=== PATIENT | female | born 1950 | race Caucasian/White ===

== ENCOUNTER → 2023-09-02 07:43 | Outpatient (REF) | payer MEDICARE, OTHER, SELFPAY ==
[2023-09-02 09:13] LABS: ALT (SGPT) 41 U/L (0-35); AST (SGOT) 38 U/L (14-36); Albumin 3.7 g/dl (3.5-5.0); Alkaline Phosphatase 73 U/L (38-126); Blood Urea Nitrogen 20 mg/dl (7-17); Calcium 9.3 mg/dl (8.4-10.2); Carbon Dioxide 27 mmol/L (22-30); Chloride 103 mmol/L (98-107); Glucose 125 mg/dl (70-99); Potassium 4.6 mmol/L (3.5-5.1); Sodium 137 mmol/L (135-145); Total Bilirubin 0.5 mg/dl (0.2-1.3); eGFR > 60.00
[2023-09-02 09:30] LABS: Free T4 1.25 ng/dl (0.78-2.19)
[2023-09-04 12:00] LABS: Fructosamine 244 umol/L (205-285)
== END ==
LOC: REG 07:43
PROVIDERS: ATTENDING PHYSICIAN Internal Medicine Endocrinology, Diabetes & Metabolism; FAMILY PHYSICIAN Internal Medicine
DX: E10.9 Type 1 diabetes mellitus without complications (principal); E03.8 Other specified hypothyroidism
CPT/HCPCS: 36415; 80053; 82985; 84439

== ENCOUNTER → 2023-10-18 13:44 | Outpatient (REF) | payer MEDICARE, OTHER, SELFPAY | LOC: WDC 13:44 | PROVIDERS: ATTENDING PHYSICIAN Obstetrics & Gynecology Gynecology; FAMILY PHYSICIAN Internal Medicine | DX: Z12.4 Encounter for screening for malignant neoplasm of cervix (principal); M85.89 Other specified disorders of bone density and structure, multiple sites; Z12.31 Encounter for screening mammogram for malignant neoplasm of breast | CPT/HCPCS: 77063; 77067; 77080 ==

== ENCOUNTER → 2023-10-27 13:14 | Outpatient (REF) | payer MEDICARE, OTHER, SELFPAY | LOC: RAD 13:14 | PROVIDERS: ATTENDING PHYSICIAN Physician Assistant Medical | DX: M54.50 Low back pain, unspecified (principal) | CPT/HCPCS: 72110 ==

== ENCOUNTER → 2023-11-17 07:13 | Outpatient (REF) | payer MEDICARE, OTHER, SELFPAY | LOC: MRI 07:13 | PROVIDERS: ATTENDING PHYSICIAN Psychiatry & Neurology Neurology; FAMILY PHYSICIAN Internal Medicine | DX: M47.816 Spondylosis without myelopathy or radiculopathy, lumbar region (principal) | CPT/HCPCS: 72148 ==

== ENCOUNTER → 2023-11-29 08:35 | Outpatient (REF) | payer MEDICARE, OTHER, SELFPAY ==
[2023-11-29 09:57] LABS: Free T4 1.16 ng/dl (0.78-2.19)
[2023-11-29 10:09] LABS: ALT (SGPT) 36 U/L (0-35); AST (SGOT) 34 U/L (14-36); Albumin 3.8 g/dl (3.5-5.0); Alkaline Phosphatase 73 U/L (38-126); Blood Urea Nitrogen 25 mg/dl (7-17); Calcium 9.7 mg/dl (8.4-10.2); Carbon Dioxide 24 mmol/L (22-30); Chloride 106 mmol/L (98-107); Glucose 148 mg/dl (70-99); HDL Cholesterol 59 mg/dl; LDL Cholesterol, Calculated 41 mg/dl; Potassium 4.5 mmol/L (3.5-5.1); Sodium 139 mmol/L (135-145); Total Bilirubin 0.4 mg/dl (0.2-1.3); Total Cholesterol 114 mg/dl (50-199); Total Protein 6.1 g/dl (6.3-8.2); Triglyceride 72 mg/dl (10-149); Very Low Density Lipoprotein 14 mg/dl (0-30); eGFR > 60.00
[2023-11-30 16:37] LABS: Fructosamine 250 umol/L (205-285)
== END ==
LOC: REG 08:35
PROVIDERS: ATTENDING PHYSICIAN Internal Medicine Endocrinology, Diabetes & Metabolism; FAMILY PHYSICIAN Internal Medicine
DX: E10.9 Type 1 diabetes mellitus without complications (principal); E78.2 Mixed hyperlipidemia; E03.8 Other specified hypothyroidism
CPT/HCPCS: 36415; 80053; 80061; 82985; 84439

== ENCOUNTER → 2024-02-28 08:12 | Outpatient (REF) | payer MEDICARE, OTHER, SELFPAY ==
[2024-02-28 09:53] LABS: % Basophils 0.5 % (0-2); % Eosinophils 4.3 % (0-6); % Immature Granulocytes 0.3 % (0-0.5); % Lymphocytes 38.7 % (20.5-51.1); % Monocytes 9.2 % (1.7-9.3); Absolute Eosinophils 0.3 10^3/uL (0-0.7); Absolute Lymphocytes 2.2 10^3/uL (1.2-3.4); Absolute Monocytes 0.5 10^3/uL (0.1-0.6); Absolute Neutrophils 2.7 10^3/uL (1.4-6.5); Hematocrit 42.9 % (37.0-47.0); Hemoglobin 14.6 g/dL (12.0-16.0); Mean Corpuscular Hgb 29.7 pg (27.0-31.0); Mean Corpuscular Volume 87.4 fL (81.0-99.0); Nucleated Red Blood Cells % 0 %; Platelet Count 234 10^3/uL (130-400); Red Blood Cell Count 4.91 10^6/uL (4.20-5.40); Red Cell Dist. Width 13.1 % (11.5-14.5); White Blood Cell Count 5.8 10^3/uL (4.8-10.8)
[2024-02-28 10:18] LABS: ALT (SGPT) 41 U/L (0-35); AST (SGOT) 32 U/L (14-36); Albumin 3.8 g/dl (3.5-5.0); Alkaline Phosphatase 61 U/L (38-126); Amylase 61 U/L (30-110); Blood Urea Nitrogen 21 mg/dl (7-17); Calcium 9.1 mg/dl (8.4-10.2); Carbon Dioxide 28 mmol/L (22-30); Chloride 107 mmol/L (98-107); Glucose 122 mg/dl (70-99); Lipase 63 U/L (23-300); Potassium 4.7 mmol/L (3.5-5.1); Sodium 137 mmol/L (135-145); Total Bilirubin 0.4 mg/dl (0.2-1.3); Total Protein 5.8 g/dl (6.3-8.2); eGFR > 60.00
[2024-02-28 10:25] LABS: Free T4 1.06 ng/dl (0.78-2.19)
[2024-03-01 00:42] LABS: Fructosamine 227 umol/L (205-285)
== END ==
LOC: REG 08:12
PROVIDERS: ATTENDING PHYSICIAN Internal Medicine Endocrinology, Diabetes & Metabolism; FAMILY PHYSICIAN Internal Medicine; OTHER PHYSICIAN Specialist; REFERRING PHYSICIAN Psychiatry & Neurology Neuromuscular Medicine
DX: E10.9 Type 1 diabetes mellitus without complications (principal); E03.8 Other specified hypothyroidism; R10.13 Epigastric pain; R14.2 Eructation
CPT/HCPCS: 36415; 80053; 82150; 82985; 83690; 84439; 85025

== ENCOUNTER → 2024-03-23 07:35 | Outpatient (REF) | payer MEDICARE, OTHER, SELFPAY | LOC: RAD 07:35 | PROVIDERS: ATTENDING PHYSICIAN Internal Medicine | DX: R10.13 Epigastric pain (principal); R14.2 Eructation | CPT/HCPCS: 76700 ==

== ENCOUNTER → 2024-04-11 13:34 | Outpatient (REF) | payer MEDICARE, OTHER, SELFPAY ==
[2024-04-11 14:58] LABS: % Basophils 0.6 % (0-2); % Eosinophils 3.4 % (0-6); % Immature Granulocytes 0.3 % (0-0.5); % Lymphocytes 26.4 % (20.5-51.1); % Monocytes 8.6 % (1.7-9.3); % Neutrophils 60.7 % (42.2-75.2); Absolute Eosinophils 0.2 10^3/uL (0-0.7); Absolute Lymphocytes 1.8 10^3/uL (1.2-3.4); Absolute Monocytes 0.6 10^3/uL (0.1-0.6); Absolute Neutrophils 4.2 10^3/uL (1.4-6.5); Hemoglobin 14.8 g/dL (12.0-16.0); Mean Corp Hgb Conc. 32.9 g/dL (33.0-37.0); Mean Corpuscular Hgb 29.4 pg (27.0-31.0); Mean Corpuscular Volume 89.3 fL (81.0-99.0); Mean Platelet Volume 9.5 fL (7.4-10.4); Nucleated Red Blood Cells % 0 %; Platelet Count 271 10^3/uL (130-400); Red Blood Cell Count 5.04 10^6/uL (4.20-5.40); Red Cell Dist. Width 12.6 % (11.5-14.5)
[2024-04-11 15:43] LABS: Blood Urea Nitrogen 25 mg/dl (7-17); Calcium 9.6 mg/dl (8.4-10.2); Carbon Dioxide 25 mmol/L (22-30); Chloride 103 mmol/L (98-107); Glucose 163 mg/dl (70-99); Potassium 5.2 mmol/L (3.5-5.1); Sodium 140 mmol/L (135-145); eGFR > 60.00
[2024-04-12 07:38] LABS: Glycohemoglobin (HgbA1c) 7.2 % (4.0-5.6)
== END ==
LOC: REG 13:34
PROVIDERS: ATTENDING PHYSICIAN Student in an Organized Health Care Education/Training Program; FAMILY PHYSICIAN Internal Medicine
DX: Z01.818 Encounter for other preprocedural examination (principal); E11.9 Type 2 diabetes mellitus without complications
CPT/HCPCS: 36415; 80048; 83036; 85025; 93005

== ENCOUNTER → 2024-06-06 11:16 | Outpatient (REF) | payer MEDICARE, OTHER, SELFPAY ==
[2024-06-06 13:15] LABS: % Basophils 0.4 % (0-2); % Eosinophils 3.3 % (0-6); % Immature Granulocytes 0.4 % (0-0.5); % Lymphocytes 31.9 % (20.5-51.1); Absolute Eosinophils 0.2 10^3/uL (0-0.7); Absolute Lymphocytes 2.2 10^3/uL (1.2-3.4); Absolute Monocytes 0.6 10^3/uL (0.1-0.6); Absolute Neutrophils 3.9 10^3/uL (1.4-6.5); Hematocrit 47.6 % (37.0-47.0); Hemoglobin 15.8 g/dL (12.0-16.0); Mean Corp Hgb Conc. 33.2 g/dL (33.0-37.0); Mean Corpuscular Hgb 29.8 pg (27.0-31.0); Mean Corpuscular Volume 89.6 fL (81.0-99.0); Mean Platelet Volume 9.4 fL (7.4-10.4); Nucleated Red Blood Cells % 0 %; Platelet Count 249 10^3/uL (130-400); Red Blood Cell Count 5.31 10^6/uL (4.20-5.40); Red Cell Dist. Width 12.6 % (11.5-14.5); White Blood Cell Count 6.9 10^3/uL (4.8-10.8)
[2024-06-06 14:02] LABS: ALT (SGPT) 46 U/L (0-35); AST (SGOT) 31 U/L (14-36); Albumin 4.1 g/dl (3.5-5.0); Alkaline Phosphatase 62 U/L (38-126); Blood Urea Nitrogen 20 mg/dl (7-17); Carbon Dioxide 26 mmol/L (22-30); Chloride 105 mmol/L (98-107); Glucose 110 mg/dl (70-99); HDL Cholesterol 75 mg/dl; LDL Cholesterol, Calculated 46 mg/dl; Potassium 4.5 mmol/L (3.5-5.1); Sodium 141 mmol/L (135-145); Total Bilirubin 0.4 mg/dl (0.2-1.3); Total Cholesterol 133 mg/dl (50-199); Total Protein 6.4 g/dl (6.3-8.2); Triglyceride 63 mg/dl (10-149); Very Low Density Lipoprotein 12 mg/dl (0-30); eGFR > 60.00
[2024-06-06 14:03] LABS: Erythrocyte Sed Rate 4 mm/hour (0-20)
[2024-06-06 14:07] LABS: C-Reactive Protein < 5.00 mg/L (0.0-10.00)
[2024-06-06 14:27] LABS: Free T4 1.14 ng/dl (0.78-2.19)
[2024-06-07 13:47] LABS: Rheumatoid Agglutinin Less Than 10 IU (<10 IU)
[2024-06-08 22:46] LABS: Fructosamine 262 umol/L (205-285)
[2024-06-09 02:10] LABS: ANA, IgG Reflex to HEp-2 None Detected (None Detected)
[2024-06-09 03:22] LABS: SSA 52 (Ro)(ENA) Ab, IgG 2 AU/mL (0-40); SSA 60 (Ro)(ENA) Ab, IgG 0 AU/mL (0-40); SSB (La)(ENA) Ab, IgG 0 AU/mL (0-40)
== END ==
LOC: REG 11:16
PROVIDERS: ATTENDING PHYSICIAN Student in an Organized Health Care Education/Training Program; FAMILY PHYSICIAN Internal Medicine; OTHER PHYSICIAN Internal Medicine Endocrinology, Diabetes & Metabolism
DX: Z01.818 Encounter for other preprocedural examination (principal); E11.9 Type 2 diabetes mellitus without complications; E24.0 Pituitary-dependent Cushing's disease; M25.50 Pain in unspecified joint; E10.9 Type 1 diabetes mellitus without complications; E03.8 Other specified hypothyroidism
CPT/HCPCS: 36415; 80053; 80061; 82985; 84439; 85025; 85652; 86038; 86140; 86235; 86430

== ENCOUNTER → 2024-06-21 12:58 | Outpatient (REF) | payer MEDICARE, OTHER, SELFPAY | LOC: RAD 12:58 | PROVIDERS: ATTENDING PHYSICIAN Neurological Surgery; FAMILY PHYSICIAN Internal Medicine | DX: M48.062 Spinal stenosis, lumbar region with neurogenic claudication (principal) | CPT/HCPCS: 72131 ==

== ENCOUNTER 2024-06-25 06:19 | Day surgery (SDC) | payer MEDICARE, OTHER, SELFPAY ==
[2024-06-25] VITALS (8 sets, daily range): BP systolic 127–141; BP diastolic 59–78; BMI 27.8
[2024-06-25 07:28] LABS: Glucose - Point of Care 136 mg/dl (70-99)
[2024-06-25] MEDS: CELEBREX 200 MG PO (07:36)
[2024-06-25] MEDS: TYLENOL 1000 MG PO (07:36)
[2024-06-25 08:46] LABS: Glucose - Point of Care 167 mg/dl (70-99)
== END 2024-06-25 10:08 | disposition home or self-care (01) ==
LOC: SDS 06:19
PROVIDERS: ATTENDING PHYSICIAN Student in an Organized Health Care Education/Training Program
PROC: 0QPP04Z Removal of Internal Fixation Device from Left Metatarsal, Open Approach (ICD-10-PCS; 2024-06-25)
DX: T84.84XA Pain due to internal orthopedic prosthetic devices, implants and grafts, initial encounter (principal); Y79.8 Miscellaneous orthopedic devices associated with adverse incidents, not elsewhere classified
CPT/HCPCS: 20680; 82962

== ENCOUNTER → 2024-06-28 18:45 | Outpatient (REF) | payer MEDICARE, OTHER, SELFPAY | LOC: MRI 18:45 | PROVIDERS: ATTENDING PHYSICIAN Neurological Surgery; FAMILY PHYSICIAN Internal Medicine | DX: M48.062 Spinal stenosis, lumbar region with neurogenic claudication (principal) | CPT/HCPCS: 72148 ==

== ENCOUNTER → 2024-07-24 11:38 | Outpatient (REF) | payer MEDICARE, OTHER, SELFPAY | LOC: RAD 11:38 | PROVIDERS: ATTENDING PHYSICIAN Neurological Surgery; FAMILY PHYSICIAN Internal Medicine | DX: M48.062 Spinal stenosis, lumbar region with neurogenic claudication (principal) | CPT/HCPCS: 72110 ==

== ENCOUNTER 2024-08-08 06:33 | Day surgery (SDC) | payer MEDICARE, OTHER, SELFPAY ==
[2024-08-08 08:20] LABS: Glucose - Point of Care 99 mg/dl (70-99)
== END 2024-08-08 09:49 | disposition home or self-care (01) ==
LOC: GI 06:33
PROVIDERS: ATTENDING PHYSICIAN Specialist
DX: D17.5 Benign lipomatous neoplasm of intra-abdominal organs (principal); K31.89 Other diseases of stomach and duodenum; R10.13 Epigastric pain; R12 Heartburn
CPT/HCPCS: 43239; 88305; 82962; 88342

== ENCOUNTER → 2024-09-06 09:21 | Outpatient (REF) | payer MEDICARE, OTHER, SELFPAY ==
[2024-09-06 10:42] LABS: ALT (SGPT) 25 U/L (0-35); AST (SGOT) 24 U/L (14-36); Albumin 4.1 g/dl (3.5-5.0); Alkaline Phosphatase 66 U/L (38-126); Blood Urea Nitrogen 19 mg/dl (7-17); Calcium 9.2 mg/dl (8.4-10.2); Carbon Dioxide 25 mmol/L (22-30); Chloride 103 mmol/L (98-107); Glucose 140 mg/dl (70-99); Potassium 4.7 mmol/L (3.5-5.1); Sodium 136 mmol/L (135-145); Total Bilirubin 0.7 mg/dl (0.2-1.3); Total Protein 6.1 g/dl (6.3-8.2); eGFR > 60.00
[2024-09-06 10:57] LABS: Free T4 1.15 ng/dl (0.78-2.19)
[2024-09-06 12:39] LABS: Glycohemoglobin (HgbA1c) 7.4 % (4.0-5.6)
[2024-09-07 13:38] LABS: Fructosamine 225 umol/L (205-285)
== END ==
LOC: REG 09:21
PROVIDERS: ATTENDING PHYSICIAN Internal Medicine Endocrinology, Diabetes & Metabolism; FAMILY PHYSICIAN Internal Medicine
DX: E10.9 Type 1 diabetes mellitus without complications (principal); E03.8 Other specified hypothyroidism
CPT/HCPCS: 36415; 80053; 82985; 83036; 84439

== ENCOUNTER 2024-11-13 06:12 | Day surgery (SDC) | payer MEDICARE, OTHER, SELFPAY ==
[2024-11-13 07:49] LABS: Glucose - Point of Care 94 mg/dl (70-99)
[2024-11-13 07:50] VITALS: BMI 27.8
[2024-11-13 07:51] VITALS: BP 138/71; BMI 27.8
[2024-11-13 10:16] VITALS: BP 114/87
[2024-11-13 10:21] LABS: Glucose - Point of Care 120 mg/dl (70-99)
[2024-11-13 10:30] VITALS: BP 103/80
[2024-11-13 10:45] VITALS: BP 130/60
== END 2024-11-13 10:50 | disposition home or self-care (01) ==
LOC: SDS 06:12
PROVIDERS: ATTENDING PHYSICIAN Internal Medicine Gastroenterology
DX: D17.5 Benign lipomatous neoplasm of intra-abdominal organs (principal); K31.89 Other diseases of stomach and duodenum; K86.9 Disease of pancreas, unspecified; K31.7 Polyp of stomach and duodenum
CPT/HCPCS: 43237; 82962

== ENCOUNTER → 2024-11-27 10:07 | Outpatient (REF) | payer MEDICARE, OTHER, SELFPAY ==
[2024-11-27 12:10] LABS: ALT (SGPT) 30 U/L (0-35); AST (SGOT) 29 U/L (14-36); Albumin 4.2 g/dl (3.5-5.0); Alkaline Phosphatase 63 U/L (38-126); Blood Urea Nitrogen 18 mg/dl (7-17); Calcium 9.2 mg/dl (8.4-10.2); Carbon Dioxide 25 mmol/L (22-30); Chloride 112 mmol/L (98-107); Glucose 132 mg/dl (70-99); HDL Cholesterol 62 mg/dl; LDL Cholesterol, Calculated 53 mg/dl; Potassium 4.6 mmol/L (3.5-5.1); Sodium 142 mmol/L (135-145); Total Bilirubin 0.5 mg/dl (0.2-1.3); Total Cholesterol 130 mg/dl (50-199); Total Protein 6.3 g/dl (6.3-8.2); Triglyceride 76 mg/dl (10-149); Very Low Density Lipoprotein 15 mg/dl (0-30); eGFR > 60.00
[2024-11-27 12:20] LABS: Glycohemoglobin (HgbA1c) 7.7 % (4.0-5.6)
[2024-11-27 12:50] LABS: Free T4 1.04 ng/dl (0.78-2.19)
[2024-11-27 13:04] LABS: TSH 0.02 uIU/ml (0.47-4.68)
[2024-11-29 09:18] LABS: Fructosamine 248 umol/L (205-285)
== END ==
LOC: REG 10:07
PROVIDERS: ATTENDING PHYSICIAN Internal Medicine Endocrinology, Diabetes & Metabolism
DX: E10.9 Type 1 diabetes mellitus without complications (principal); E78.2 Mixed hyperlipidemia; E03.8 Other specified hypothyroidism
CPT/HCPCS: 36415; 80053; 80061; 82985; 83036; 84439; 84443

== ENCOUNTER → 2025-02-04 10:32 | Outpatient (REF) | payer MEDICARE, OTHER, SELFPAY | LOC: RAD 10:32 | PROVIDERS: ATTENDING PHYSICIAN Neurological Surgery; FAMILY PHYSICIAN Internal Medicine | DX: Z98.1 Arthrodesis status (principal) | CPT/HCPCS: 72110 ==

== ENCOUNTER → 2025-02-19 09:53 | Outpatient (REF) | payer MEDICARE, OTHER, SELFPAY ==
[2025-02-19 11:30] LABS: Glycohemoglobin (HgbA1c) 7.5 % (4.0-5.6)
[2025-02-19 11:42] LABS: Microalbumin, Random Urine 2.7 mg/dl (0.6-1.7)
[2025-02-19 11:48] LABS: Microalb - Urine Creatinine 213.800 mg/dl
[2025-02-19 12:35] LABS: TSH 0.02 uIU/ml (0.47-4.68)
[2025-02-19 12:51] LABS: ALT (SGPT) 32 U/L (0-35); AST (SGOT) 27 U/L (14-36); Albumin 4.1 g/dl (3.5-5.0); Alkaline Phosphatase 66 U/L (38-126); Blood Urea Nitrogen 18 mg/dl (7-17); Calcium 9.6 mg/dl (8.4-10.2); Carbon Dioxide 23 mmol/L (22-30); Chloride 110 mmol/L (98-107); Glucose 148 mg/dl (70-99); Potassium 4.3 mmol/L (3.5-5.1); Sodium 138 mmol/L (135-145); Total Protein 6.4 g/dl (6.3-8.2); Very Low Density Lipoprotein 14 mg/dl (0-30); eGFR > 60.00
[2025-02-19 12:55] LABS: HDL Cholesterol 53 mg/dl; LDL Cholesterol, Calculated 57 mg/dl
== END ==
LOC: REG 09:53
PROVIDERS: ATTENDING PHYSICIAN Internal Medicine Endocrinology, Diabetes & Metabolism; FAMILY PHYSICIAN Internal Medicine
DX: E10.9 Type 1 diabetes mellitus without complications (principal); E03.8 Other specified hypothyroidism
CPT/HCPCS: 36415; 80053; 80061; 82043; 82570; 82985; 83036; 84439; 84443